=== PATIENT | male | born 1995 | race Caucasian/White ===

== ENCOUNTER 2020-12-17 23:59 | Emergency (ER) | payer OTHER ==
[~2020-12-17] VITALS: Ht 175.3 cm; Wt 66.4 kg
[2020-12-17 23:59] VITALS: BP 121/83
[2020-12-18] MEDS ORDERED: MORPHINE SULFATE 4 MG/ML DISP.SYRIN. IM ONE (00:15)
[2020-12-18] MEDS ORDERED: IBUPROFEN 600 MG TABLET. PO ONE (00:15)
--- NOTE | 2020-12-18 00:17 | PHYS DOC ---
Adult General Chief Complaint Chief Complaint: CLAVICLE INJURY HPI HPI Patient is a 25-year-old male who presents with left shoulder/clavicle pain. States he was on the track field, running sprints, tripped and fell on his left shoulder. States he had immediate pain, 7 out of 10, sharp in nature. Denies any other injuries. Review of Systems Review of Systems Review of systems otherwise unremarkable except noted in HPI Allergies Allergies Allergies Coded Allergies Type Severity Reaction Last Updated Verified No Known Drug Allergies 12/18/20 No Physical Exam Physical Exam Constitutional: Well developed, well nourished, no acute distress, non-toxic appearance. [] Neck: Normal range of motion, no tenderness, supple, no stridor. [] Cardiovascular:Heart rate regular rhythm, no murmur [] Lungs & Thorax: Bilateral breath sounds clear to auscultation [] Back: No tenderness, Extremities: Tenderness at distal clavicle, and anterior shoulder. Neurovascular exam intact. Neurologic: Alert and oriented X 3, normal motor function, normal sensory function, no focal deficits noted. [] Psychologic: Affect normal, judgement normal, mood normal. [] EKG EKG [] Radiology/Procedures Radiology/Procedures []XR SHOULDER_LEFT 2+ VIEWS History: Reason: trauma from fall, left shoulder pain / Spl. Instructions: clavicle fracture? / History: Technique: 3 views left shoulder Comparison: None. Findings: Acute comminuted displaced left midclavicular fracture. Normal alignment of the left glenohumeral and acromioclavicular joints. Impression: 1. Acute comminuted displaced left midclavicular fracture. Electronically signed by: John Clancy DO (12/18/2020 12:54 AM) [facility] Heart Score C/O Chest Pain: No Risk Factors: Risk Factors: DM, Current or recent (<one month) smoker, HTN, HLP, family h istory of CAD, obesity. Risk Scores: Risk Factors: DM, Current or recent (<one month) smoker, HTN, HLP, family history of CAD, obesity. Course & Med Decision Making Course & Med Decision Making Patient is a 25-year-old male who presents with left shoulder pain after falling while doing sprints Vital signs not concerning. Physical exam noted above. Patient given ice, ibuprofen and morphine for pain control Imaging notable for midclavicular fracture. Patient placed in sling and swath. Discussed all findings with patient and given contact information for orthopedic surgery. Advised to call orthopedic surgery first thing in the morning to discuss ED visit and set up a follow-up as soon as possible. Gave strict return precautions to the ED. Patient grateful, verbalized understanding and agreed with plan of discharge. [] Dragon Disclaimer Dragon Disclaimer This electronic medical record was generated, in whole or in part, using a voice recognition dictation system. Departure Departure: Impression: Primary Impression: Left shoulder pain Additional Impression: Clavicle fracture Disposition: 01 DC HOME SELF CARE/HOMELESS Condition: GOOD Referrals: CODIE CINTRON MD Additional Instructions: Please read all of the attached information. Please begin a ice and Tylenol/ibuprofen pain regimen. Please use your prescription pain medicine as needed and prescribed. Please do not exceed 3000 mg of Tylenol daily. Please call your primary care physician to update on ED visit and diagnosis. Please call the [facility] orthopedic group first thing in the morning at [phone] to schedule a follow-up visit as soon as possible. Please come back to the ED with new or concerning symptoms as discussed Scripts Hydrocodone Bit/Acetaminophen (HYDROCODONE-APAP 5-325 ) 1 Each Tablet 1 TAB PO TID PRN for CLAVICLE FRACTURE for 7 Days, #21 TAB 0 Refills Prov: EDINSON GONZALEZ MD 12/18/20 Problem Qualifiers EDINSON GONZALEZ MD Dec 18, 2020 00:17
--- NOTE | 2020-12-18 00:56 | RAD ---
XR SHOULDER_LEFT 2+ VIEWS History: Reason: trauma from fall, left shoulder pain / Spl. Instructions: clavicle fracture? / Histo ry: Technique: 3 views left shoulder Comparison: None. Findings: Acute comminuted displaced left midclavicular fracture. Normal alignment of the left glenohumeral and acromioclavicular joints. Impression: 1. Acute comminuted displaced left midclavicular fracture. Electronically signed by: John Clancy DO (12/18/2020 12:54 AM) JOSHUA
[2020-12-18] MEDS ORDERED: HYDR-2155 PO (01:05)
== END 2020-12-18 01:27 | disposition home or self-care (01) ==
LOC: ER 23:59
DX: S42.002A Fracture of unspecified part of left clavicle, initial encounter for closed fracture (principal); W01.0XXA Fall on same level from slipping, tripping and stumbling without subsequent striking against object, initial encounter; Y93.89 Activity, other specified; Y92.89 Other specified places as the place of occurrence of the external cause; Y99.8 Other external cause status
CPT/HCPCS: 29240; 73030; 96372; 99283; J2270

== ENCOUNTER → 2021-01-27 | Outpatient (CLI) | payer OTHER ==
[~2021-01-27] MED LIST: HYDR-2155 PO
--- NOTE | 2021-01-27 13:59 | RAD ---
EXAM: Left clavicle, 2 views. HISTORY: Fracture fixation. COMPARISON: 12/18/2020 FINDINGS: 2 views of the left clavicle are obtained. There is internal fixation of the comminuted lef t mid clavicle fracture with a plate and multiple screws. IMPRESSION: Internal fixation of a clavicle fracture. Electronically signed by: Carine Verdugo MD (01/27/2021 1:56 PM) [id number]
== END ==
LOC: RAD 13:45
PROVIDERS: ATTEND Physician Assistant
DX: M25.512 Pain in left shoulder (principal); Z98.890 Other specified postprocedural states
CPT/HCPCS: 73000

== ENCOUNTER → 2021-02-21 | Outpatient (CLI) | payer OTHER ==
--- NOTE | 2021-02-21 12:44 | RAD ---
EXAM: Left clavicle, 2 views. HISTORY: Fracture fixation. COMPARISON: 01/27/2021 FINDINGS: 2 views of the left clavicle are obtained. There is internal fixation of a mid left clavicl e fracture with plate and multiple screws. There is slight increased callus formation along the main fracture line. IMPRESSION: Slight interval healing of a left mid clavicle fracture status post internal fixation. Electronically signed by: Carine Verdugo MD (02/21/2021 12:42 PM) [id number]
== END ==
LOC: DXRAD 10:58
PROVIDERS: ATTEND Physician Assistant
DX: Z98.890 Other specified postprocedural states (principal)
CPT/HCPCS: 73000

== ENCOUNTER → 2021-04-28 | Outpatient (CLI) | payer OTHER ==
--- NOTE | 2021-04-29 10:30 | RAD ---
EXAM: 2 views left clavicle DATE: 04/28/2021 3:21 PM INDICATION: Reason: FOLLOW UP CLAVICLE INJURY / Spl. Instructions: / History: . COMPARISON: 02/21/2021 FINDINGS/ IMPRESSION: Progressively healing left clavicle fracture post reduction/fixation in stable alignment. No interval hardware complication. Electronically signed by: Brian West MD (04/29/2021 10:27 AM) [id number]
== END ==
LOC: RAD 15:15
PROVIDERS: ATTEND Physician Assistant
DX: S42.002D Fracture of unspecified part of left clavicle, subsequent encounter for fracture with routine healing (principal); X58.XXXD Exposure to other specified factors, subsequent encounter; Z98.890 Other specified postprocedural states
CPT/HCPCS: 73000

== ENCOUNTER 2021-08-28 22:11 | Emergency (ER) | payer OTHER ==
[~2021-08-28] VITALS: Ht 175.3 cm; Wt 61.4 kg
[2021-08-28] MEDS ORDERED: IBUPROFEN 600 MG TABLET. PO ONE (22:30)
--- NOTE | 2021-08-28 22:38 | PHYS DOC ---
Past History Past Medical History: Anxiety Past Surgical History: No Surgical History Alcohol Use: Occasionally General Adult EDM: Chief Complaint: LOWEREXTREMITY INJURY HPI: HPI: Patient is a [age] year old [sex] who presents with [] Review of Systems: Review of Systems: Constitutional: Denies fever or chills Eyes: Denies redness or eye pain HENT: Denies nasal congestion or sore throat Respiratory: Denies cough or shortness of breath Cardiovascular: Denies chest pain or palpitations GI: Denies abdominal pain, nausea, or vomiting : Denies dysuria or hematuria Musculoskeletal: Denies back pain or joint pain Integument: Denies rash or skin lesions Neurologic: Denies headache, focal weakness or sensory changes Complete systems were reviewed and found to be within normal limits, except as documented in this note. Current Medications: Current Meds: Current Medications Medications (Trade) Dose Ordered Sig/Kiel Start Time Stop Time Status Last Admin Dose Admin Ibuprofen (Motrin) 600 mg 1X ONCE 08/28/21 22:30 08/28/21 22:31 DC Allergies: Allergies: Allergies Coded Allergies Type Severity Reaction Last Updated Verified No Known Drug Allergies 12/18/20 No Physical Exam: PE: Constitutional: Well developed, well nourished, no acute distress, non-toxic appearance HENT: Normocephalic, atraumatic Eyes: PERRL, EOMI, conjunctiva normal, no discharge Neck: Normal range of motion, no tenderness, supple Lungs & Thorax: No respiratory distress, equal chest rise and fall Abdomen: Soft, no tenderness Skin: Warm, dry, no erythema, no rash Back: No tenderness, no CVA tenderness Extremities: No tenderness, ROM intact, no edema Neurologic: Alert and oriented X 3, normal motor function, normal sensory function, no focal deficits noted Psychologic: Affect normal, judgment normal Current Patient Data: Vital Signs: Vital Signs Date Time Temp Pulse Resp B/P (MAP) Pulse Ox O2 Delivery O2 Flow Rate FiO2 08/28/21 22:19 98.1 79 18 112/64 (80) 97 Room Air EKG: EKG: [] Radiology/Procedures: Radiology/Procedures: [] Heart Score: C/O Chest Pain: N/A Course & Med Decision Making: Course & Med Decision Making Pertinent Imaging studies reviewed. (See chart for details) Patient stable for discharge with outpatient follow-up with PCP/orthopedics. Orthopedic referral provided. Discussed findings and plan with patient and spouse, who acknowledge understanding and agreement. Michelle Disclaimer: Michelle Disclaimer: This electronic medical record was generated, in whole or in part, using a voice recognition dictation system. Splinting Splinting : Location: Left knee Pre-Made Type: Tremaine bandage Pre-Proc Neuro Vasc Exam: normal Post-Proc Neuro Vasc Exam: normal, unchanged from pre-exam Departure Departure: Impression: Primary Impression: Left knee sprain Qualified Codes: S83.92XA - Sprain of unspecified site of left knee, initial encounter Disposition: HOME / SELF CARE / HOMELESS Condition: STABLE Referrals: ADAM PATEL [facility] (PCP) CHOCO RUBIO II, MD, ROBERT W Jr. PAC Patient Instructions: Crutch Use, [id number], Knee Sprain, [id number], Knee Wraps (Elastic Bandage) and RICE Additional Instructions: Ice area of discomfort for 20 minutes on then leave off for next 20 minutes. Repeat several times daily for the next few days. Take kefl-hnz-lrafthn ibuprofen and or Tylenol for pain or discomfort. DARRIUS MANZO DO Aug 28, 2021 22:38
[2021-08-28 23:00] VITALS: BP 114/68
--- NOTE | 2021-08-28 23:06 | RAD ---
EXAM: AP, lateral and oblique views of the left knee DATE: 08/28/2021 10:10 PM INDICATION: Reason: pain s/p contusion / Spl. Instructions: / History: COMPARISON: No Prior FINDINGS: No acute fracture or dislocation. No joint effusion. Joint spaces are preserved without significant degenerative/proliferative change. IMPRESSION: No acute fracture or dislocation. Electronically signed by: Brian West MD (08/28/2021 11:03 PM) DARYL
== END 2021-08-28 23:04 | disposition home or self-care (01) ==
LOC: ER 22:11
DX: S83.92XA Sprain of unspecified site of left knee, initial encounter (principal); X58.XXXA Exposure to other specified factors, initial encounter; Y93.89 Activity, other specified; Y92.89 Other specified places as the place of occurrence of the external cause; Y99.8 Other external cause status
CPT/HCPCS: 73562; 99283-25

== ENCOUNTER → 2021-12-05 | Outpatient (CLI) | payer OTHER ==
--- NOTE | 2021-12-05 14:22 | RAD ---
Study: XR SHOULDER_LEFT 2+ VIEWS Indication: Pain. Comparison: Most recent left clavicle radiographs 04/28/2021; left shoulder radiographs 04/19/2021 Findings: Healed mid left clavicle fracture. Associated plate and screw surgical hardware is intact and well fi xated. Anatomic alignment is maintained across the acromioclavicular and glenohumeral joints. Normal acromiohumeral interval. No significant arthrosis. No newly seen fracture. Impression: 1. No acute fracture, malalignment or significant arthrosis. 2. Healed mid left clavicle fracture. Associated surgical hardware is intact and well fixated. Electronically signed by: CHANA DURAN MD (12/05/2021 2:19 PM) [id number]
== END ==
LOC: RAD 09:46
PROVIDERS: ATTEND Physician Assistant
DX: M25.512 Pain in left shoulder (principal)
CPT/HCPCS: 73030

== ENCOUNTER 2022-01-03 13:46 | Emergency (ER) | payer OTHER ==
[~2022-01-03] VITALS: Ht 175.3 cm; Wt 61.4 kg
[2022-01-03 13:57] VITALS: BP 102/69
--- NOTE | 2022-01-03 14:20 | RAD ---
XR EXAM OF ANKLE_RIGHT 3VIEWS 01/03/2022 2:08 PM INDICATION: Twisted, pain COMPARISON: None available. TECHNIQUE: 3 views of the right ankle are provided. FINDINGS/ IMPRESSION: There is no acute fracture or dislocation. Joint spaces are maintained. Bone mineralization is within normal limits. Regional soft tissues are within normal limits. There is no soft tissue gas or osseou s erosion. No radiopaque foreign body. Electronically signed by: Lanny Sawyer MD (01/03/2022 2:18 PM) SHAD
--- NOTE | 2022-01-03 14:30 | PHYS DOC ---
Past History Past Medical History: Anxiety Past Surgical History: Other Additional Past Surgical Histo: [place] teeth, left collar bone Alcohol Use: Occasionally General Adult EDM: Chief Complaint: ANKLE PROBLEM HPI: HPI: 26-year-old male presents with right ankle pain. The patient was carrying groceries into the house when he rolled his ankle. It caused him to buckle at the knees and he fell all the way to the ground. The patient was surprised at the pain then and that it made him collapse. He is able to walk on it but it is tender all across the top of his foot. He denies numbness or tingling. He has no other injuries. Review of Systems: Review of Systems: Constitutional: Denies fever or chills Eyes: Denies change in visual acuity HENT: Denies nasal congestion or sore throat Respiratory: Denies cough or shortness of breath Cardiovascular: Denies chest pain or edema GI: Denies abdominal pain, nausea, vomiting, bloody stools or diarrhea : Denies dysuria Musculoskeletal: Right ankle pain Integument: Denies rash Neurologic: Denies headache, focal weakness or sensory changes Endocrine: Denies polyuria or polydipsia Lymphatic: Denies swollen glands Psychiatric: Denies depression or anxiety Allergies: Allergies: Allergies Coded Allergies Type Severity Reaction Last Updated Verified No Known Drug Allergies 12/18/20 No Physical Exam: PE: Constitutional: Well developed, well nourished, no acute distress, non-toxic appearance. [] HENT: Normocephalic, atraumatic, bilateral external ears normal, oropharynx moist, no oral exudates, nose normal. [] Eyes: PERRLA, EOMI, conjunctiva normal, no discharge. [] Neck: Normal range of motion, no tenderness, supple, no stridor. [] Cardiovascular:Heart rate regular rhythm, no murmur [] Lungs & Thorax: Bilateral breath sounds clear to auscultation [] Abdomen: Bowel sounds normal, soft, no tenderness, no masses, no pulsatile masses. [] Skin: Warm, dry, no erythema, no rash. [] Back: No tenderness, no CVA tenderness. [] Extremities: Tenderness over the right lateral ankle, no ecchymosis or obvious deformity. [] Neurologic: Alert and oriented X 3, normal motor function, normal sensory function, no focal deficits noted. [] Psychologic: Affect normal, judgement normal, mood normal. [] Current Patient Data: Vital Signs: Vital Signs Date Time Temp Pulse Resp B/P (MAP) Pulse Ox O2 Delivery O2 Flow Rate FiO2 01/03/22 13:57 97.9 74 16 102/69 (80) 97 Room Air EKG: EKG: [] Radiology/Procedures: Radiology/Procedures: [] Impressions: XR EXAM OF ANKLE_RIGHT 3VIEWS 01/03/2022 2:08 PM INDICATION: Twisted, pain COMPARISON: None available. TECHNIQUE: 3 views of the right ankle are provided. FINDINGS/ IMPRESSION: There is no acute fracture or dislocation. Joint spaces are maintained. Bone mineralization is within normal limits. Regional soft tissues are within normal limits. There is no soft tissue gas or osseous erosion. No radiopaque foreign body. Electronically signed by: Radha Sawyer MD (01/03/2022 2:18 PM) [facility] DICTATED AND SIGNED BY: RADHA SAWYER MD DATE: 01/03/22 141 CC: SHARON HOUSTON DO; ADAM PATEL ~ Heart Score: C/O Chest Pain: N/A Risk Factors: Risk Factors: DM, Current or recent (<one month) smoker, HTN, HLP, family history of CAD, obesity. Risk Scores: Score 0 - 3: 2.5% MACE over next 6 weeks - Discharge Home Score 4 - 6: 20.3% MACE over next 6 weeks - Admit for Clinical Observation Score 7 - 10: 72.7% MACE over next 6 weeks - Early Invasive Strategies Course & Med Decision Making: Course & Med Decision Making Pertinent Labs and Imaging studies reviewed. (See chart for details) The patient's ankle x-ray is negative for fracture. We will place him in a stirrup splint. I have also advised ibuprofen and ice therapy. He is stable for discharge at this time. [] Dragon Disclaimer: Michelle Disclaimer: This electronic medical record was generated, in whole or in part, using a voice recognition dictation system. Departure Departure: Impression: Primary Impression: Right ankle sprain Disposition: HOME / SELF CARE / HOMELESS Condition: STABLE Referrals: ADAM PATEL (PCP) Patient Instructions: Ankle Sprain, Acute, with Phase I Rehab[facility] SHARON HOUSTON DO Jan 03, 2022 14:30
== END 2022-01-03 14:51 | disposition home or self-care (01) ==
LOC: ER 13:46
DX: S93.401A Sprain of unspecified ligament of right ankle, initial encounter (principal); W18.39XA Other fall on same level, initial encounter; Y93.89 Activity, other specified; Y92.89 Other specified places as the place of occurrence of the external cause; Y99.8 Other external cause status
CPT/HCPCS: 29515; 73610; 99283-25